=== PATIENT | female | born 1975 | race African-American/Black ===

== ENCOUNTER 2019-02-13 14:11 | Emergency (ER) | payer MEDICAID, OTHER ==
[~2019-02-13] VITALS: Ht 172.7 cm; Wt 73.0 kg
[~2019-02-13 14:11] MED LIST: TRAMADOL
[2019-02-13] MEDS ORDERED: ALPRAZOLAM 0.5 MG TABLET PO ONE (15:00)
[2019-02-13] MEDS ORDERED: TRAMADOL 50MG TABLET PO ONE (15:00)
[2019-02-13 16:45] VITALS: BP 103/67
== END 2019-02-13 17:05 | disposition home or self-care (01) ==
LOC: ER 14:11
DX: F41.9 Anxiety disorder, unspecified (principal); G89.29 Other chronic pain; M25.562 Pain in left knee; M54.9 Dorsalgia, unspecified; Z79.82 Long term (current) use of aspirin; Z88.6 Allergy status to analgesic agent; Z98.890 Other specified postprocedural states
CPT/HCPCS: 99284